=== PATIENT | female | born 1960 | race African-American/Black ===

== ENCOUNTER 2019-03-01 18:59 | Inpatient (IN) ==
[2019-03-01] MEDS ORDERED: hydrALAZINE 20 MG/1 ML VIAL IV STA ×2 (19:20→20:23)
[2019-03-01] MEDS ORDERED: FOSPHENYTOIN 1,000 MG.PE in SODIUM CHLORIDE 0.9% 250 ML IV STA (19:20)
[2019-03-01] MEDS ORDERED: LORazepam 2 MG/1 ML VIAL IV STA (19:20)
[2019-03-01] MEDS ORDERED: LORazepam 2 MG/1 ML VIAL ONE (19:22)
[2019-03-01] MEDS ORDERED: FOSPHENYTOIN 500 MG.PE/10 ML VIAL ONE (19:23)
[2019-03-01 19:34] LABS: Basophils % 0.4 % (0.0-0.8); Eosinophils % 0.3 % (0.00-10.9); Hematocrit 37.4 VOL% (35.7-47.0); Hemoglobin 11.7 GM/DL (12.0-16.0); Immature Granulocytes % 1.3 %; Immature Granulocytes Absolute 0.09 #; Lymphocytes % 14.1 % (21.3-54.2); Mean Corpuscular HGB Conc 31.3 GM/DL (32-36); Mean Corpuscular Volume 77.8 FL (87-102); Monocytes % 3.7 % (1.7-12.7); Neutrophils % 80.2 % (38.7-73.9); Platelet Count 172 T/CUMM (130-400); Red Blood Count 4.81 MC/CUMM (3.8-5.5); Red Cell Distribution Width 13.6 % (9.3-17.3)
[2019-03-01] MEDS ORDERED: niCARdipine 25 MG/10 ML VIAL IV ONE (19:48)
[2019-03-01] MEDS ORDERED: niCARdipine INJ 25 MG in SODIUM CHLORIDE 0.9% 240 ML IV PRN (19:48)
[2019-03-01 19:56] LABS: Alanine Aminotransferase 13 U/L (13-56); Albumin 4.1 G/DL (3.4-5.0); Alkaline Phosphatase 98 U/L (45-117); Aspartate Amino Transferase 21 U/L (0-37); Blood Urea Nitrogen 14 MG/DL (7-18); Calcium 9.7 MG/DL (8.5-10.1); Estimated Glom Filtration Rate 44 ML/MIN; Glucose 398 MG/DL (74-106); Osmolality,Calculated 285.2 MOS/KG (273-304); Total Protein 8.4 G/DL (6.4-8.3)
[2019-03-01] MEDS ORDERED: INSULIN REGULAR 100 UNIT/ML IV STA (20:21)
[2019-03-01 20:37] LABS: Apearance,Urine CLEAR (Clear); Bacteria,Urine Occasional /HPF (Few); Bilirubin,Urine Negative (Negative); Blood, Urine Negative (Negative); Glucose,Urine (UA) >=500 mg/dL (Negative); Hyaline Casts,Urine 1 /LPF (0-3); Ketones,Urine 5 mg/dL (Negative); Mucus,Urine Occasional /LPF (Occasional); Nitrite,Urine Negative (Negative); Protein,Urine 30 MG/DL; RBC,Urine <1 /HPF (0-4); Squamous Epithelial Cell,Urine Occasional /HPF (0-10); Urine Color Yellow (Yellow); Urine Specific Gravity 1.013 (1.001-1.035); Urine Urobilinogen < 2.0 EU/DL (0.2-1.0)
[2019-03-01 20:41] LABS: Barbiturates Screen,Urine Negative (Negative); Benzodiazepines Screen,Urine Negative (Negative); Cannabinoid Screen,Urine Negative (Negative); Opiate Screen,Urine Negative (Negative); Phencyclidine Screen,Urine Negative (Negative)
[2019-03-01] MEDS ORDERED: DEXTROSE 50% 25 GM/50 ML VIAL IV PRN (21:13)
[2019-03-01] MEDS ORDERED: ACETAMINOPHEN 325 MG TABLET PO PRN (21:13)
[2019-03-01] MEDS ORDERED: GLUCAGON 1 MG VIAL IM PRN (21:13)
[2019-03-01] MEDS ORDERED: ONDANSETRON 4 MG/2 ML VIAL IV PRN (21:13)
[2019-03-01] MEDS ORDERED: hydrALAZINE 20 MG/1 ML VIAL IV PRN (21:32)
[2019-03-01] MEDS: SODIUM CHLORIDE 0.9% 1,000 ML IV SCH (22:42)
[2019-03-01] MEDS: ENOXAPARIN 40 MG/0.4 ML SYRINGE SUBCUT SCH (22:42)
[2019-03-01] MEDS: INSULIN REGULAR 100 UNIT/ML SUBCUT SCH (23:02)
[2019-03-02] MEDS: INSULIN REGULAR 100 UNIT/ML SUBCUT SCH ×5 (00:51→20:44)
[2019-03-02 05:16] LABS: Basophils % 0.2 % (0.0-0.8); Hematocrit 33.5 VOL% (35.7-47.0); Hemoglobin 10.6 GM/DL (12.0-16.0); Immature Granulocytes % 0.5 %; Immature Granulocytes Absolute 0.08 #; Lymphocytes # 1.9 10*3/uL (1.4-4.0); Lymphocytes % 11.8 % (21.3-54.2); Mean Corpuscular HGB Conc 31.6 GM/DL (32-36); Mean Corpuscular Volume 76.1 FL (87-102); Monocytes % 4.2 % (1.7-12.7); Neutrophils % 83.3 % (38.7-73.9); Platelet Count 205 T/CUMM (130-400); Red Cell Distribution Width 13.6 % (9.3-17.3); White Blood Count 15.8 T/CUMM (4-12)
[2019-03-02 05:34] LABS: Calcium 9.8 MG/DL (8.5-10.1)
[2019-03-02] MEDS: SODIUM CHLORIDE 0.9% 1,000 ML IV SCH (06:29)
[2019-03-02] MEDS: PHENYTOIN ER 100 MG CAPSULE PO SCH ×3 (09:00→20:44)
[2019-03-02] MEDS: amLODIPine 10 MG TABLET PO SCH (09:00)
[2019-03-02] MEDS: PANTOPRAZOLE 40 MG TABLET PO SCH (09:00)
[2019-03-02 09:25] LABS: Free T4 (Free Thyroxine) 1.18 NG/DL (0.76-1.46); Thyroid Stimulating Hormone 0.405 uIU/ml (0.358-3.74)
[2019-03-02] MEDS ORDERED: POTASSIUM CHLORIDE 20 MEQ TABLET PO ONE (11:00)
[2019-03-02] MEDS: ENOXAPARIN 40 MG/0.4 ML SYRINGE SUBCUT SCH (20:44)
[2019-03-02] MEDS ORDERED: INSULIN GLARGINE 100 UNIT/ML SUBCUT SCH (21:00)
[2019-03-03 06:08] LABS: Basophils % 0.4 % (0.0-0.8); Eosinophils % 0.3 % (0.00-10.9); Hematocrit 35.6 VOL% (35.7-47.0); Hemoglobin 11.2 GM/DL (12.0-16.0); Immature Granulocytes % 0.3 %; Immature Granulocytes Absolute 0.02 #; Lymphocytes # 1.2 10*3/uL (1.4-4.0); Lymphocytes % 16.3 % (21.3-54.2); Mean Corpuscular HGB Conc 31.5 GM/DL (32-36); Mean Corpuscular Volume 77.9 FL (87-102); Monocytes % 5.7 % (1.7-12.7); Platelet Count 120 T/CUMM (130-400); Red Blood Count 4.57 MC/CUMM (3.8-5.5); Red Cell Distribution Width 14.3 % (9.3-17.3); White Blood Count 7.2 T/CUMM (4-12)
[2019-03-03 06:25] LABS: Hypochromasia 1+; Ovalocytes Slight
[2019-03-03 06:26] LABS: Platelet Estimate Adequate
[2019-03-03 06:31] LABS: Calcium 9.5 MG/DL (8.5-10.1); Osmolality,Calculated 275.2 MOS/KG (273-304)
[2019-03-03] MEDS ORDERED: INSULIN GLARGINE 100 UNIT/ML SUBCUT SCH ×2 (09:00→11:51)
[2019-03-03] MEDS ORDERED: LISINOPRIL 20 MG TABLET PO SCH (09:00)
[2019-03-03] MEDS ORDERED: MAGNESIUM SULF RIDER 2 GM in PREMIX 1 EACH IV ONE (09:00)
[2019-03-03] MEDS: PANTOPRAZOLE 40 MG TABLET PO SCH (09:09)
[2019-03-03] MEDS: ATORVASTATIN 10 MG TABLET PO SCH (09:10)
[2019-03-03] MEDS: INSULIN REGULAR 100 UNIT/ML SUBCUT SCH ×4 (09:11→21:56)
[2019-03-03] MEDS: amLODIPine 10 MG TABLET PO SCH (09:12)
[2019-03-03] MEDS: PHENYTOIN ER 100 MG CAPSULE PO SCH ×3 (09:12→21:56)
[2019-03-03] MEDS: carvediloL 6.25 MG TABLET PO SCH ×2 (09:12→17:17)
[2019-03-03] MEDS ORDERED: TUBERCULIN SKIN TEST 0.1 ML SYRINGE INTRADERM ONE (13:00)
[2019-03-04 05:50] LABS: Calcium 8.8 MG/DL (8.5-10.1); Osmolality,Calculated 278.2 MOS/KG (273-304)
[2019-03-04] MEDS: PHENYTOIN ER 100 MG CAPSULE PO SCH ×3 (08:14→20:48)
[2019-03-04] MEDS: carvediloL 6.25 MG TABLET PO SCH ×2 (08:14→16:57)
[2019-03-04] MEDS: ATORVASTATIN 10 MG TABLET PO SCH (08:15)
[2019-03-04] MEDS: amLODIPine 10 MG TABLET PO SCH (08:15)
[2019-03-04] MEDS: PANTOPRAZOLE 40 MG TABLET PO SCH (08:15)
[2019-03-04] MEDS: INSULIN GLARGINE 100 UNIT/ML SUBCUT SCH (08:15)
[2019-03-04] MEDS: INSULIN REGULAR 100 UNIT/ML SUBCUT SCH ×4 (08:16→22:06)
[2019-03-05 05:57] LABS: Osmolality,Calculated 280.7 MOS/KG (273-304)
[2019-03-05] MEDS: INSULIN GLARGINE 100 UNIT/ML SUBCUT SCH (09:07)
[2019-03-05] MEDS: PHENYTOIN ER 100 MG CAPSULE PO SCH ×3 (09:08→22:10)
[2019-03-05] MEDS: INSULIN REGULAR 100 UNIT/ML SUBCUT SCH ×4 (09:08→22:11)
[2019-03-05] MEDS: PANTOPRAZOLE 40 MG TABLET PO SCH (09:09)
[2019-03-05] MEDS: ATORVASTATIN 10 MG TABLET PO SCH (09:09)
[2019-03-05] MEDS: carvediloL 6.25 MG TABLET PO SCH ×2 (09:09→16:26)
[2019-03-05] MEDS: amLODIPine 10 MG TABLET PO SCH (09:09)
[2019-03-06 05:36] LABS: Basophils % 0.4 % (0.0-0.8); Eosinophils # 0.2 10*3/uL (0.0-0.87); Eosinophils % 5.1 % (0.00-10.9); Hematocrit 31.9 VOL% (35.7-47.0); Hemoglobin 10.1 GM/DL (12.0-16.0); Immature Granulocytes % 0.2 %; Immature Granulocytes Absolute 0.01 #; Lymphocytes # 1.3 10*3/uL (1.4-4.0); Lymphocytes % 28.6 % (21.3-54.2); Mean Corpuscular HGB Conc 31.7 GM/DL (32-36); Mean Corpuscular Volume 76.5 FL (87-102); Monocytes % 8.5 % (1.7-12.7); Neutrophils % 57.2 % (38.7-73.9); Platelet Count 131 T/CUMM (130-400); Red Blood Count 4.17 MC/CUMM (3.8-5.5); Red Cell Distribution Width 14.2 % (9.3-17.3); White Blood Count 4.7 T/CUMM (4-12)
[2019-03-06 05:48] LABS: Calcium 9.5 MG/DL (8.5-10.1); Osmolality,Calculated 283.1 MOS/KG (273-304)
[2019-03-06 05:58] LABS: Hypochromasia 1+; Microcytosis 1+
[2019-03-06 05:59] LABS: Ovalocytes Few; Platelet Estimate Adequate; Target Cells Slight
[2019-03-06] MEDS ORDERED: MAGNESIUM SULF RIDER 4 GM in PREMIX 1 EACH IV PRN (07:15)
[2019-03-06] MEDS ORDERED: MAGNESIUM SULF RIDER 2 GM in PREMIX 1 EACH IV PRN (07:15)
[2019-03-06] MEDS: INSULIN REGULAR 100 UNIT/ML SUBCUT SCH ×2 (07:55→11:58)
[2019-03-06] MEDS: carvediloL 6.25 MG TABLET PO SCH (07:56)
[2019-03-06] MEDS ORDERED: LOSARTAN 25 MG TABLET PO SCH (09:00)
[2019-03-06] MEDS: PHENYTOIN ER 100 MG CAPSULE PO SCH ×2 (09:10→16:09)
[2019-03-06] MEDS: ATORVASTATIN 10 MG TABLET PO SCH (09:10)
[2019-03-06] MEDS: amLODIPine 10 MG TABLET PO SCH (09:10)
[2019-03-06] MEDS: PANTOPRAZOLE 40 MG TABLET PO SCH (09:11)
[2019-03-06] MEDS: INSULIN GLARGINE 100 UNIT/ML SUBCUT SCH (09:19)
[2019-03-06 12:01] VITALS: BP 168/88
[2019-03-06] MEDS ORDERED: carvediloL 12.5 MG TABLET PO SCH (17:00)
== END 2019-03-06 15:58 | DRG 58 ==
LOC: EDBD → EDUNIT# → N.ED 18:59 → SUATTDRO 21:13 → N.EDINP 21:13 → N.2E 21:48
PROVIDERS: ADMIT Internal Medicine; ATTEND Hospitalist